=== PATIENT | male | born 1975 | race Caucasian/White ===

== ENCOUNTER → 2018-08-08 | Outpatient (CLI) | payer BC ==
[~2018-08-08] MED LIST: LEVAQUIN 500 M500 MG PO; MOTRIN 600 MG600 M1 GT; NORCO 5-325 TA1 EACH PO
== END ==
LOC: MRI 07:13
DX: M47.816 Spondylosis without myelopathy or radiculopathy, lumbar region (principal); M25.78 Osteophyte, vertebrae; M51.35 Other intervertebral disc degeneration, thoracolumbar region

== ENCOUNTER → 2018-08-20 | Outpatient (CLI) | payer BC ==
[~2018-08-20] VITALS: Ht 180.3 cm; Wt 111.1 kg
[~2018-08-20] MED LIST changes: +CYCLOBENZAPRINE10 MG PO; +MEDROL DOSPAK21 TA1 PO; +METHOCARBAMOL500 M2 PO; +NABUMETONE 500500 M1 PO; +TRAMADOL 50 MG50 MG PO
[2018-08-20 09:11] VITALS: BP 123/87
--- NOTE | 2018-08-20 09:12 | NUR ---
Pain Clinic Assessment: 1. History of Osteoarthritis: Not Applicable History of Rheumatoid Arthritis: Not Applicable 2. Height: 5 ft. 11 in. 180.3 cm. Weight: 245.0 lb. oz. 111.132 kg. Patient's BMI: 34.2 3. Vital Signs: BP: 123/87 Pulse: 64 Resp: 16 Temp: 02 Sat: 97 ECG Mon: 4. Pain Intensity: 8 5. Fall Risk: Dizziness: N Needs help standing or walking: N Fallen in the last 3 months: N Fall risk comments: 6. Patient on Blood Thinner: None 7. History of Hypertension: N 8. Opioid Therapy greater than 6 weeks: N Opiate Contract Signed: 9. Risk Assessment Tool Provided: low 0 10. Functional Assessment Tool: 599/70 11. Recreational Drug Use: Never Drug Type: Tobacco Use: Current Every Day Smoker Tobacco Type: Cigarettes Amount or Packs/day: 1 pack How Many Years: 20 Alcohol Use: Yes Frequency: Weekly Quant: 1
--- NOTE | 2018-08-27 13:04 | HPC ---
[facility] [place] [address] PAIN MANAGEMENT CONSULTATION Name: MELANIE MARSHALL Room #: REG CL MRosalie.#: [id number] Admission: 08/20/18 ������������������ Attend Phys: Murphy Fox DO Discharge: ������������������ Date of : 79 Report #: [id number] THIS REPORT FOR: //name// CC: SHAQ Carmona DATE OF SERVICE: 08/20/2018 REFERRING PHYSICIAN: Shaq Penaloza, nurse practitioner. CHIEF COMPLAINT: Low back pain, left buttock and posterolateral thigh pain. HISTORY OF PRESENT ILLNESS: As you know, the patient is a 42-year-old male who reports a 1-month history of low back pain and left buttock pain. He describes the pain starting spontaneously. There was no injury or trauma. He does heavy lifting at his job and believes this may exacerbate the symptoms. He has sought chiropractic manipulation with the use of decompression table, which did provide improvement in symptoms. Unfortunately, his symptoms continued to return. He discussed his case further with his primary care physician who then referred the patient to our clinic as he was not improving with traditional conservative options. He has been doing home exercise stretching and core strengthening, which is physician-directed. He has not done formalized physical therapy, but is doing home exercise program given through his PCP. Despite all these attempts, his pain has not improved. He keeps a pain score today of around 8/10. Due to lack of improvement with more conservative options, the patient was subsequently referred to our clinic to discuss treatments. Today, the patient is describing pain as continuous, steady and constant. He indicates the pain is burning, shooting, aching, sharp when describing symptoms. He places current pain score 8/10, daily average at 9/10, worst pain has been 10/10. The patient states that sitting, lying down and standing for any length of time exacerbates symptoms, nothing tends to improve pain. He has been referred to our clinic by his primary care team for evaluation for suspected lumbar radiculopathy. PAST MEDICAL HISTORY: Negative. PAST SURGICAL HISTORY: 1. Cholecystectomy. 2. Appendectomy. 3. LASIK surgery. 4. Bladder surgery. SOCIAL HISTORY: The patient is a smoker of 1 pack tobacco per day, has done so for 20 years. Denies IV or illicit drug use. Admits to one alcoholic beverage [address] [address] PAIN MANAGEMENT CONSULTATION Name: MELANIE MARSHALL JACQUE Room #: REG CLI Harvinder.#: [id number] Admission: 08/20/18 ������������������ Attend Phys: Murphy Fox DO Discharge: ������������������ Date of : 79 Report #: [id number] minimum per week. He is a operator and truck driver. He is working, not receiving workmen's compensation, nor is trying to obtain disability benefits. He is unaccompanied today. IMAGING: MRI lumbar spine obtained on 08/08/2018 shows L1-L2 with mild degenerative changes with ventral osteophytes with no disk bulge, central canal or neural foraminal stenosis. Minimal degenerative changes noted at the T11-T12 level. Otherwise, completely normal MRI of the lumbar spine. ALLERGIES: PENICILLIN. CURRENT MEDICATIONS: Methocarbamol 500 mg p.o. at bedtime p.r.n., tramadol 50 mg every 6 hours p.r.n. for pain. REVIEW OF SYSTEMS: Positive only for low back pain and left buttock and posterolateral thigh pain. All other review of systems negative per 12-point review of systems other than those listed in history of present illness. Pain impact score 59/70, indicating severe interference of daily activities secondary to pain. PHYSICAL EXAMINATION: VITAL SIGNS: Blood pressure 123/87, pulse 64, respiratory rate 16 and unlabored. The patient is 97% on room air. Height 5 feet 11 inches tall, weight 245 pounds, BMI calculated 34.2. GENERAL: Well-developed, well-nourished, well-hydrated exogenously obese 42-year-old male, appearing stated age, pain is rated today at 8/10. HEENT: Normocephalic, atraumatic. Pupils equal, round, reactive to light. Extraocular muscles are intact. Sclerae nonicteric without injection. NEUROLOGIC: Cranial nerves 2-12 grossly intact. Speech fluent. The patient deemed a good historian. LUNGS: Clear, no wheeze, rhonchi or rales. CARDIOVASCULAR: Regular. No appreciable gallop, no rub. ABDOMEN: Soft, mildly obese, normoactive bowel sounds. EXTREMITIES: Show no clubbing, no cyanosis, no edema. MUSCULOSKELETAL: Lower extremity strength is symmetrical 5/5, intact to light touch from L1 through S2 dermatomes. Seated straight leg raising negative. Supine straight leg raising negative. Marlyn test negative. Modified Gaenslen's positive for axial low back pain. Ankle clonus negative. Babinski is negative. Gait is normal. Stance slightly forward flexed lumbar spine, improvement in symptoms with forward flexion of the lumbar spine, provocating testing of the lumbar region met with increased pain with rotation and lateral flexion. ASSESSMENT: 1. Myofascial pain. 2. Chronic low back pain. [facility] [address] [place] [address] PAIN MANAGEMENT CONSULTATION Name: MELANIE MARSHALL Room #: REG CLI Walter#: [id number] Admission: 08/20/18 ������������������ Attend Phys: Murphy Fox DO Discharge: ������������������ Date of : 79 Report #: [id number] PLAN: 1. Based on today's physical exam and history the patient provided, the description the patient uses in regards to pain, his symptoms appear to be related more to mild facet arthropathy and myofascial symptoms. I am pleased to advise the patient at this time findings of his MRI are completely normal for a 42-year-old male. There is no lateralizing feature to the patient's symptoms, mild arthritic changes. No central canal or neural foraminal stenosis responsible for his ongoing pain. We discussed with the patient the options for treatment given his minimal findings on MRI, the following was discussed with the patient. We discussed physical therapy, stretching exercises and core strengthening. This is the gold standard treatment for this type of pain generator. This would be performed in a formalized fashion where the patient will be sent to a facility with an excellent director of casino marketing to begin the process of improving overall pain. We discussed making adjustments in medication utilizing anti-inflammatory medication and a different muscle relaxant for his myofascial symptoms. We also discussed the possibility of looking towards acupuncture therapy as a treatment option. He is not a candidate for injection therapies, and he has no findings that would require surgery. After this long discussion of treatment, the patient chose to make adjustments in medications. 2. The patient was provided a change in his muscle relaxant, will be moving from methocarbamol to Flexeril. He will be using a 10 mg dose 1 tab p.o. t.i.d. p.r.n. muscle spasms, #90. The patient was advised not to drive or operate heavy equipment on this medication as it can and typically does cause somnolence, decreased mental acuity, disorientation and confusion. He will need to utilize the medication appropriately. 3. The patient will be started on a baseline anti-inflammatory medication in the form of nabumetone 500 mg dose 1 tab p.o. t.i.d. p.r.n. He was given #90 tablets, with 2 refills. The patient was advised to watch for dyspepsia, worsening blood pressure, lower extremity edema with its use. If he notes any side effects, discontinue immediately. 4. We wish to thank nurse practitioner, Ca, for the referral of the patient to our clinic. We are hopeful the information provided in this consultation and consult will help direct his further care. We wish to thank you for the opportunity to see him here today. He will follow up with you as there is no need for interventional treatments or long-term pain management in this patient's case. Again, we wish to thank you for the opportunity to see the [facility] [address] [place] [address] PAIN MANAGEMENT CONSULTATION Name: MELANIE MARSHALL JACQUE Room #: REG XIMENA Watson#: [id number] Admission: 08/20/18 ������������������ Attend Phys: Murphy Fox DO Discharge: ������������������ Date of : 79 Report #: [id number] patient in consultation. We will be returning his care to your capable services. ��������������������������������������������� <ELECTRONICALLY SIGNED> ���������������������������������������� By: Mruphy Fox DO ��������������������������������������������� 08/27/18 1304 [id number] Murphy Fox DO /nt
== END ==
LOC: PAIN 06:43
DX: M54.5 Low back pain (principal); G89.29 Other chronic pain; M79.10 Myalgia, unspecified site; F17.200 Nicotine dependence, unspecified, uncomplicated; Z90.49 Acquired absence of other specified parts of digestive tract; Z72.89 Other problems related to lifestyle; Z88.0 Allergy status to penicillin; Z79.899 Other long term (current) drug therapy

== ENCOUNTER → 2018-09-10 | Outpatient (CLI) | payer BC ==
[~2018-09-10] VITALS: Ht 180.3 cm; Wt 110.8 kg
[2018-09-10 08:16] VITALS: BP 119/85
--- NOTE | 2018-09-10 08:34 | NUR ---
Pain Clinic Assessment: 1. History of Osteoarthritis: Not Applicable History of Rheumatoid Arthritis: Not Applicable 2. Height: 5 ft. 11 in. 180.3 cm. Weight: 244.2 lb. oz. 110.769 kg. Patient's BMI: 34.1 3. Vital Signs: BP: 119/85 Pulse: 68 Resp: 16 Temp: 02 Sat: 97 ECG Mon: 4. Pain Intensity: 7 5. Fall Risk: Dizziness: N Needs help standing or walking: N Fallen in the last 3 months: N Fall risk comments: 6. Patient on Blood Thinner: None 7. History of Hypertension: N 8. Opioid Therapy greater than 6 weeks: N Opiate Contract Signed: 9. Risk Assessment Tool Provided: low 0 10. Functional Assessment Tool: 59/70 11. Recreational Drug Use: Never Drug Type: Tobacco Use: Current Every Day Smoker Tobacco Type: Amount or Packs/day: How Many Years: Alcohol Use: Yes Frequency: Quant:
--- NOTE | 2018-09-10 08:36 | NUR ---
Pain Clinic Assessment: 1. History of Osteoarthritis: Not Applicable History of Rheumatoid Arthritis: Not Applicable 2. Height: 5 ft. 11 in. 180.3 cm. Weight: 244.2 lb. oz. 110.769 kg. Patient's BMI: 34.1 3. Vital Signs: BP: 119/85 Pulse: 68 Resp: 16 Temp: 02 Sat: 97 ECG Mon: 4. Pain Intensity: 7 5. Fall Risk: Dizziness: N Needs help standing or walking: N Fallen in the last 3 months: N Fall risk comments: 6. Patient on Blood Thinner: None 7. History of Hypertension: N 8. Opioid Therapy greater than 6 weeks: N Opiate Contract Signed: 9. Risk Assessment Tool Provided: low 0 10. Functional Assessment Tool: 59/70 11. Recreational Drug Use: Never Drug Type: Tobacco Use: Current Every Day Smoker Tobacco Type: Cigarettes Amount or Packs/day: 1 How Many Years: 20 Alcohol Use: Yes Frequency: Special Occasions Quant: 1-2
--- NOTE | 2018-09-18 08:18 | HPC ---
[facility] [address] [place] [address] PAIN MANAGEMENT CONSULTATION Name: MELANIE MARSHALL Room #: REG CL MRosalie.#: [id number] Admission: 09/10/18 ������������������ Attend Phys: Murphy Fox DO Discharge: ������������������ Date of : 79 Report #: [id number] THIS REPORT FOR: //name// CC: Shaq Carmona DATE OF SERVICE: 09/10/2018 CHIEF COMPLAINT: Axial back pain. HISTORY OF PRESENT ILLNESS: As you know, the patient is a 42-year-old male who is experiencing a 1-month history of axial back pain. He states that pain began about one month ago, no inciting injury or trauma. He states the pain is exacerbated with heavy lifting. He has tried chiropractic decompression without significant pain improvement. The patient was seen in our clinic on 08/20/2018 per the request of his nurse practitioner, Shaq Penaloza, and diagnosed with myofascial pain as well as chronic low back pain. At that visit we discussed multiple treatment options. We started the patient on Flexeril, nabumetone, which provided improvement in symptoms. He is now placing pain no greater than 7/10. He describes the pain as constant, steady, burning, shooting, aching, sharp and stabbing, exacerbated with standing, lying down, sitting on hard surfaces or walking on hard surfaces, jumping off of his "rig." States pain is improved with medications. He returns today in followup to discuss further treatment options to address axial back pain issues. As you are aware, the patient has only minimal degenerative changes of lumbar spine. The findings of his MRI dated 08/08/2018 shows normal findings. ALLERGIES: PENICILLIN. CURRENT MEDICATIONS: Cyclobenzaprine 10 mg t.i.d., nabumetone 500 mg t.i.d., tramadol 50 mg q.5 hours p.r.n. for pain. SOCIAL HISTORY: The patient is a smoker 1 pack tobacco per day, has done so for 20 years. Denies IV or illicit drug use. Admits to one alcoholic beverage minimum per week. He is a dedicated local truck driver. He is working, not receiving workmen's compensation, unaccompanied today. PHYSICAL EXAMINATION: VITAL SIGNS: Blood pressure 119/85, pulse 68, respiratory rate 16 and unlabored. The patient is 97% on room air. Height 5 feet 11 inches tall, weight 244.2 pounds, BMI calculated 34.1. GENERAL: Well-developed, well-nourished, well-hydrated, obese 42-year-old male appearing stated age, pain is rated around 7/10. HEENT: Normocephalic, atraumatic. Pupils equal, round, reactive to light. [facility] [address] [place] [address] PAIN MANAGEMENT CONSULTATION Name: MELANIE MARSHALL Room #: REG CLI [id number] Admission: 09/10/18 ������������������ Attend Phys: Murphy Fox DO Discharge: ������������������ Date of : 79 Report #: [id number] EXTREMITIES: Show no clubbing, no cyanosis, and no edema. MUSCULOSKELETAL: Lower extremity strength is symmetrical again today 5/5. Muscle bulk and tone equal and symmetrical. Seated straight leg raising negative. Supine straight leg raising negative. TEA test negative. Modified Gaenslen's positive for some axial low back pain. Ankle clonus negative. Babinski is negative. Gait is normal. ASSESSMENT: 1. Myofascial pain. 2. Mild facet arthropathy of the lumbar spine. 3. Chronic intractable pain. PLAN: 1. The patient returns today in followup visit indicating no significant pain improvement with the adjustment in medication made at last visit. He does note a reduction in symptoms based on his VAS score, but does not note resolution of pain. We advised the patient at this time the findings of his MRI show no specific pathology that would be the source of symptoms, this appears to be myofascial related and possibly a small component due to facet arthropathy, but should be treated conservatively. We discussed with the patient the treatment options available. The treatment discussed today is as follows: 1. We discussed physical therapy, stretching exercises, core strengthening and a concerted effort at weight loss. This could be beneficial not only for strengthening of the core, but alleviating pain and reducing any increased strain across the lumbar area. We discussed adjustments in medications, adding a temporary dosing of steroids to assist in alleviating the inflammatory process and then returning to baseline pain medication on a short-term basis that in conjunction with the physical therapy. We discussed the lack of findings in the MRI that would be amenable to injections such as intra-articular facet injections, medial branch nerve blocks and radiofrequency lesioning, which would not be covered by the patient's insurance as there is no noted pathology in the lumbar spine. Surgical options in this patient's case are nonexistent. After this discussion of treatment, the patient made adjustments in medication therapy. 2. The patient will be started on a Medrol Dosepak. I have given him 1 pack to take as directed. I did advise the patient this is intended to reduce the inflammatory process that may be promoting his overall pain. This will not provide long-term benefit. He needs to remain on a consistent nonsteroidal anti-inflammatory and become quite active in his physical therapy, stretching exercises and core strengthening as that is the gold standard of treatment for only myofascial symptoms in the lumbar spine. 3. We will see the patient back in followup visit on an as needed basis. Interventional treatments as indicated above would not be covered by the patient's current insurer and would not be recommended as his noted MRI has no pathology. There is no significant facet arthropathy, no lateralizing features that would require interventional treatments and thus will not be recommended. [address] [address] PAIN MANAGEMENT CONSULTATION Name: MELANIE MARSHALL JACQUE Room #: REG CLI Walter#: [id number] Admission: 09/10/18 ������������������ Attend Phys: Murphy Fox DO Discharge: ������������������ Date of : 79 Report #: [id number] 4. We will keep you apprised of any other changes made in medication therapy or treatment options for the patient's ongoing myofascial pain. ��������������������������������������������� <ELECTRONICALLY SIGNED> ���������������������������������������� By: Murphy Fox DO ��������������������������������������������� 09/18/18 0818 [id number] Murphy Fox DO /nt
== END ==
LOC: PAIN 07:50
DX: M12.88 Other specific arthropathies, not elsewhere classified, other specified site (principal); G89.29 Other chronic pain; M79.18 Myalgia, other site

== ENCOUNTER → 2019-09-26 | Outpatient (CLI) | payer OTHER | LOC: CAT 08:12 | PROVIDERS: ATTEND Nurse Practitioner | DX: Z13.6 Encounter for screening for cardiovascular disorders (principal); I25.10 Atherosclerotic heart disease of native coronary artery without angina pectoris; E78.00 Pure hypercholesterolemia, unspecified ==